=== PATIENT | male | born 1945 | race Caucasian/White ===

== ENCOUNTER 2017-01-19 10:36 | Emergency (ER) | payer OTHER ==
[~2017-01-19] VITALS: Ht 167.6 cm; Wt 94.0 kg
[~2017-01-19 10:36] MED LIST: COLC1TAB7 PO; DIOV160T6 PO; ECOT81TA2 PO; ENOX60P SQ; GLIP5TAB8 PO; GLUCTAB PO; HYDR12.57 PO; LANS30 PO; METO100T PO; NIAC250C6 PO; SIMV80TA PO; WARF3TAB PO
[2017-01-19 10:44] VITALS: BP 167/99; PULSE 89; RESP 16; TEMP 98.3; O2SAT 97
[2017-01-19] MEDS ORDERED: SIMV40TA PO (11:04)
[2017-01-19] MEDS ORDERED: METF500T PO (11:04)
[2017-01-19] MEDS ORDERED: VALS1TAB65 PO (11:04)
[2017-01-19] MEDS ORDERED: HYDR12.56 PO (11:04)
[2017-01-19] MEDS ORDERED: GLIP10TA6 PO (11:04)
[2017-01-19] MEDS ORDERED: COLC1CAP3 PO (11:04)
[2017-01-19] MEDS ORDERED: WARF-58 PO (11:04)
[2017-01-19] MEDS ORDERED: LANS15CA PO (11:04)
[2017-01-19] MEDS ORDERED: ASPI-516 PO (11:04)
[2017-01-19] MEDS ORDERED: METO100T PO (11:04)
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
--- NOTE | 2017-01-19 12:00 | RADRPT ---
EXAM DATE/TIME: 01/19/2017 11:21 [facility] COMPARISON: No previous studies available for comparison. INDICATIONS : Right elbow pain and swelling, no known injury. MEDICAL HISTORY : None. SURGICAL HISTORY : None. ENCOUNTER: Initial ACUITY: 2 weeks PAIN SCORE: 5/10 LOCATION: Right elbow FINDINGS: Multiple view examination of the right elbow demonstrates no soft tissue swelling, joint effusion, or fracture. The osseous structures are in normal alignment. Bony mineralization is normal. CONCLUSION: Negative for fracture. Nahid Huber MD FACR on January 19, 2017 at 11:57 Board Certified Radiologist. This report was verified electronically.
[2017-01-19] MEDS ORDERED: PRED20 PO (12:29)
[2017-01-19] MEDS ORDERED: DEXAMETHASONE SOD PHOS 4 MG/ML VIAL IM ONE (12:30)
== END 2017-01-19 13:01 | disposition home or self-care (01) ==
LOC: PHEFT 10:36
DX: M79.641 Pain in right hand (principal); M10.9 Gout, unspecified; E11.9 Type 2 diabetes mellitus without complications; E78.00 Pure hypercholesterolemia, unspecified; I10 Essential (primary) hypertension; Z79.84 Long term (current) use of oral hypoglycemic drugs
CPT/HCPCS: 73080; 96372; 99284; J1100

== ENCOUNTER 2017-06-03 09:46 | Emergency (ER) | payer MEDICARE, OTHER ==
[~2017-06-03] VITALS: Ht 167.6 cm; Wt 89.6 kg
[~2017-06-03 09:46] MED LIST changes: +ASPI-516 PO; +COLC1CAP3 PO; -COLC1TAB7 PO; -DIOV160T6 PO; -ECOT81TA2 PO; -ENOX60P SQ; +GLIP10TA6 PO; -GLIP5TAB8 PO; -GLUCTAB PO; +HYDR12.56 PO; -HYDR12.57 PO; +LANS15CA PO; -LANS30 PO; +METF500T PO; -NIAC250C6 PO; +PRED20 PO; +SIMV40TA PO; -SIMV80TA PO; +VALS1TAB65 PO; +WARF-58 PO; -WARF3TAB PO
[2017-06-03 09:59] VITALS: BP 179/95; PULSE 74; RESP 18; TEMP 97.4; O2SAT 99
--- NOTE | 2017-06-03 10:34 | RADRPT ---
EXAM DATE/TIME: 06/03/2017 10:19 [facility] COMPARISON: No previous studies available for comparison. INDICATIONS : Left wrist pain after fall 3 days ago. MEDICAL HISTORY : Arthritis. Gout. SURGICAL HISTORY : None. ENCOUNTER: Initial ACUITY: 3 days PAIN SCORE: 3/10 LOCATION: Left wrist FINDINGS: Three view examination of the left wrist demonstrates no soft tissue swelling, dislocation, or fractu re. Degenerative changes are seen at the first carpometacarpal joint. The carpal bones are in normal alignment. The joint spaces are maintained. Bony mineralization is normal. CONCLUSION: Degenerative changes first carpometacarpal joint. No fracture Nahid Huber MD FACR on June 03, 2017 at 10:30 Board Certified Radiologist. This report was verified electronically.
--- NOTE | 2017-06-03 11:00 | PD ---
HPI Chief Complaint: Injury Time Seen by Provider: 10:16 Travel History International Travel<30 days: No Contact w/Intl Traveler<30days: No Traveled to known affect area: No History of Present Illness HPI 71-year-old male here with left wrist pain 3 days. Patient reports he tripped falling forward onto outstretched hand injuring the wrist 3 days ago. He denies head injury or loss of consciousness. Patient is anticoagulated on warfarin. He denies headache, visual changes, neck pain, chest pain, abdominal pain, paresthesia or weakness of the extremities. He has pain localized to the left wrist exclusively which is throbbing in nature, worse with range of motion and relieved with rest. Symptom severity is mild to moderate. He has not attempted any OTC medications. PFSH Past Medical History Hx Anticoagulant Therapy: Yes (WARFARIN) Arthritis: Yes Asthma: No Atrial Fibrillation: Yes Blood Disorders: No Heart Rhythm Problems: Yes Cancer: Yes (BASAL CELL SKIN CA) Cardiac Catheterization: Yes Cardiovascular Problems: Yes (A FIB) High Cholesterol: Yes Chest Pain: Yes Congestive Heart Failure: No COPD: No Diabetes: Yes (TYPE 2) Patient Takes Glucophage: Yes Endocrine: Yes Genitourinary: No Hepatitis: No Hiatal Hernia: No Hypertension: Yes Immune Disorder: No Musculoskeletal: Yes (ARTHRITIS) Neurologic: Yes (NUMBNESS RIGHT HAND) Psychiatric: No Reproductive: No Respiratory: Yes (SLEEP APNEA, USES CPAP) Myocardial Infarction: Yes (2001) Sleep Apnea: Yes Thyroid Disease: No Influenza Vaccination: Yes Past Surgical History AICD: No Arteriovenous Shunt: No Body Medical Devices: CARDIAC STENTS, PINS/RODS REMOVED FROM R FOOT, WIRE R KNEE Cardiac Surgery: Yes (CARDIAC STENTS 2001, 2008) Coronary Stent: Yes (x 3 ) Insulin Pump: No Joint Replacement: No Pacemaker: No Other Surgery: Yes Social History Alcohol Use: Yes (occassionally ) Tobacco Use: No Substance Use: No Allergies-Medications (Allergen,Severity, Reaction): Coded Allergies: penicillin G (Unverified Allergy, Severe, 06/03/17) Reported Meds & Prescriptions Reported Meds & Active Scripts Active Reported Glipizide 10 Mg Tab 10 Mg PO DAILY Take 30 minutes before a meal Metformin (Metformin HCl) 500 Mg Tab 500 Mg PO TIDPC Lansoprazole 15 Mg Capdr 15 Mg PO DAILY Colchicine 0.6 Mg Cap 0.6 Mg PO DAILY Aspirin 81 Mg Chew 81 Mg PO DAILY Warfarin 3 Mg Tab 3 Mg PO DAILY Hydrochlorothiazide 12.5 Mg Tab 12.5 Mg PO DAILY Simvastatin 40 Mg Tab 40 Mg PO HS Valsartan 160 Mg Tab 160 Mg PO BID Metoprolol Tartrate 100 Mg Tab 100 Mg PO BID Review of Systems Except as stated in HPI: all other systems reviewed are Neg General / Constitutional: No: Fever Eyes: No: Visual changes HENT: No: Headaches Cardiovascular: No: Chest Pain or Discomfort Respiratory: No: Shortness of Breath Gastrointestinal: No: Abdominal Pain Genitourinary: No: Dysuria Physical Exam Narrative GENERAL: Alert and well-appearing 8-year-old male SKIN: Warm and dry. Superficial abrasion noted to left knee and left elbow HEAD: Atraumatic. Normocephalic. EYES: Pupils equal and round. EOMs intact. No injection or drainage. ENT: No nasal bleeding or discharge. Mucous membranes pink and moist. No facial bone tenderness NECK: Trachea midline. No cervical midline tenderness. CARDIOVASCULAR: Regular rate and rhythm. No chest wall tenderness. RESPIRATORY: No accessory muscle use. Clear to auscultation. Breath sounds equal bilaterally. GASTROINTESTINAL: Abdomen soft, non-tender, nondistended. MUSCULOSKELETAL: Extremities without clubbing, cyanosis, or edema. No obvious deformities. Left upper extremely: +ttp over distal radius and scaphoid region. Flexion and extension of the wrist cause pain. Can freely move the fingers. 2+ radial pulse. Normal sensation in the wrist and hand. Brisk cap refill. NEUROLOGICAL: Awake and alert. No obvious cranial nerve deficits. Motor grossly within normal limits. Five out of 5 muscle strength in the arms and legs. Normal speech. PSYCHIATRIC: Appropriate mood and affect; insight and judgment normal. Data Data Last Documented VS Vital Signs Date Time Temp Pulse Resp B/P (MAP) Pulse Ox O2 Delivery O2 Flow Rate FiO2 06/03/17 09:59 97.4 74 18 179/95 (123) 99 Orders Orders Wrist, Complete ([id number]) (06/03/17 ) Splint Or Brace Apply/Monitor (06/03/17 10:46) [facility] Medical Decision Making Medical Screen Exam Complete: Yes Emergency Medical Condition: Yes Differential Diagnosis Wrist fracture, scaphoid fracture, wrist sprain, ICH Narrative Course 71-year-old male here with left wrist pain after he fell from a standing position onto an outstretched hand 3 days ago. The extremity is neurovascularly intact. patient is anticoagulated on Coumadin. He is adamant he did not hit his head. No LOC and remembers the entire event. Denies headache, visual changes, nausea or vomiting or any symptoms of ICH. Discussed CT scan to rule out ICH given he is anticoagulated and had a fall. Patient refused. Risk of missed ICH could lead to permanent disability and discussed. He verbalizes understanding and still refuses scan. X-ray left wrist is negative for fracture or dislocation. Patient has tenderness over the scaphoid region and for this reason he was put in a thumb spica splint to rule out occult fracture of the scaphoid. He is to follow-up with his primary doctor for recheck next week. Diagnosis Primary Impression: Wrist pain Qualified Codes: M25.532 - Pain in left wrist Referrals: Orthopedist Primary Care Physician Additional Instructions: Leave the splint in place until follow-up with her primary doctor next week. Your x-ray was negative for fracture at today's visit. You have pain over the scaphoid bone and may need repeat x-ray if you continue to have pain next week. Disposition: 01 DISCHARGE HOME Condition: Stable VincenzosapphireDeysi COKER Jun 03, 2017 11:00
== END 2017-06-03 11:10 | disposition home or self-care (01) ==
LOC: PHEFT 09:46
DX: M25.532 Pain in left wrist (principal); W01.0XXA Fall on same level from slipping, tripping and stumbling without subsequent striking against object, initial encounter; I10 Essential (primary) hypertension; I48.91 Unspecified atrial fibrillation; I25.2 Old myocardial infarction; E78.00 Pure hypercholesterolemia, unspecified; E11.9 Type 2 diabetes mellitus without complications; M19.90 Unspecified osteoarthritis, unspecified site; Z85.828 Personal history of other malignant neoplasm of skin; Z95.5 Presence of coronary angioplasty implant and graft; Z88.0 Allergy status to penicillin; Z79.01 Long term (current) use of anticoagulants; Z79.84 Long term (current) use of oral hypoglycemic drugs; Z79.899 Other long term (current) drug therapy
CPT/HCPCS: 73110; 99283; L3808; 29130

== ENCOUNTER 2017-11-29 10:42 | Observation (INO) ==
--- NOTE | 2017-11-29 12:30 | ED ---
HPI General Chief complaint: Recheck/Abnormal Lab/Rx Stated complaint: Right Leg Complaint Time Seen by Provider: 11/29/17 12:01 History of Present Illness HPI narrative: 72-year-old male with a history of hypertension, CAD with aunts x3, hyperlipidemia, diabetes, atrial fibrillation presents to the emergency department for evaluation of anemia and leg hematoma. Patient states that one week ago he was driving down from [place] to his home here in [place]. States that when they arrived in [place] he had pain in his right posterior thigh. States that he had significant swelling in this area and tenderness to palpation. States that he went to a hospital in [place] and they did ultrasound and CT imaging and determined that he had a hematoma in his right thigh due to taking warfarin. States that while he was in the hospital he was anemic however never required transfusion. States that he was in the hospital for 5 days. He was discharged from that hospital 4 days ago and had blood work done yesterday as an outpatient for his PCP. States that he went to his PCPs office today and they noted that his hemoglobin was 6.7 yesterday and therefore he was sent here to have possible blood transfusion. He states that he still has pain in the right thigh and right lower leg. Describes it as a soreness. States that the bruising has moved down from his upper thigh now to his ankle. States that the swelling has improved since last week. He has not been on warfarin since he was admitted to the hospital last week, he is currently on no anticoagulation. He does state he feels slightly fatigued. Denies any chest pain, shortness of breath, syncope, presyncope, numbness or tingling. No other complaints. PCP Dr. Garcia. Related Data Home Medications Medication Instructions Recorded Confirmed glipizide 10 mg PO DAILY 11/29/17 11/29/17 hydrochlorothiazide 12.5 mg PO DAILY 11/29/17 11/29/17 lansoprazole 15 mg PO DAILY 11/29/17 11/29/17 metformin 500 mg PO BID 11/29/17 11/29/17 metoprolol tartrate 100 mg PO BID 11/29/17 11/29/17 valsartan 160 mg PO BID 11/29/17 11/29/17 warfarin 3 mg PO DAILY 11/29/17 11/29/17 Allergies Allergy/AdvReac Type Severity Reaction Status Date / Time penicillin G Allergy Severe Hives Verified 11/29/17 12:00 Review of Systems ROS: all other systems reviewed are negative [facility] Medical History Medical History A-fib (Acute) Diabetes (Acute) Gout (Acute) HBP (high blood pressure) (Acute) High cholesterol (Acute) Surgical History Surgical History Hx of heart artery stent (Acute) Hx of knee surgery (Acute) Social History Social History Substance History: No History of Abuse Second Hand Smoke Exposure: No Smoking Status: Never smoker How Often Do You Have a Drink Containing Alcohol: Never Recent Travel in [facility] within the Last 8 Weeks: No Recent Out of Country Travel within the Last 8 Weeks: No Immunization History Tetanus Immunization: >5 Years Exam Narrative Exam Narrative: GENERAL: Well-nourished and well-developed pleasant patient in no acute distress who is nontoxic appearing. SKIN: Warm and dry. HEAD: Normocephalic and atraumatic. EYES: No injection, drainage, or hyphema noted. PERRLA. EOMI. ENT: No nasal drainage noted. Oropharynx is clear. NECK: Supple and the trachea is midline. CARDIOVASCULAR: Regular rate and rhythm. RESPIRATORY: Breath sounds are equal bilaterally with no accessory muscle use, wheezing, rhonchi, or crackles. GASTROINTESTINAL: Abdomen is soft, non-tender, and nondistended. MUSCULOSKELETAL: Large area of ecchymosis noted to right inner thigh extending from groin to knee with tenderness to palpation. Ecchymosis noted to medial right ankle with tenderness to palpation. Mild swelling of leg from thigh down to ankle. No calf tenderness. No obvious deformities present throughout the upper and lower extremities. Patient has full range of motion without any signs of neurovascular compromise. Distal pulses are 2+ throughout. NEUROLOGICAL: Awake, alert, and oriented. Normal speech and gait. Cranial nerves are grossly intact. Course Initial Documented Vital Signs Temperature 98.6 F 11/29/17 10:48 Pulse Rate 93 H 11/29/17 10:48 Respiratory Rate 16 11/29/17 10:48 Blood Pressure 137/62 11/29/17 10:48 Pulse Oximetry 100 11/29/17 10:48 Last Documented Vital Signs Temperature 98.1 F 11/29/17 17:40 Pulse Rate 91 H 11/29/17 17:40 Respiratory Rate 16 11/29/17 17:40 Blood Pressure 136/69 11/29/17 17:40 Pulse Oximetry 98 11/29/17 17:25 Medical Decision Making URIEL Attestation URIEL supervised visit: Yes Attestation: I, Dr. Stoddard, have reviewed the advance practice practitioner' s documentation and am in agreement, met with the patient face to face, made the diagnosis, and the medical decision making was done by me. *My assessment and Findings: Ecchymosis on the right lower extremity with dependent edema and ecchymosis on the distal aspect of the leg MDM Narrative Medical decision making narrative: 72-year-old male presents to the ED for evaluation of anemia and right leg hematoma. Patient is afebrile, vital signs are stable. IV access is obtained, labs been drawn and sent. Patient is placed on cardiac telemetry and pulse oximetry monitoring. Patient brought labs with him that he had done yesterday as an outpatient which shows his hemoglobin was 6.7, hematocrit 23.1, INR 1.0. He also brought records from recent hospitalization in [place]. His last CT of the femur without IV contrast was done 11/23/17 showing large intramuscular hematoma within the vastus intermedius muscle with no significant interval change seen in the size of the hematoma when compared to the original image done 11/21/17. CBC shows slightly elevated white blood cell count of 14.3 and anemia with hemoglobin 6.9, hematocrit 22.3. Coags are unremarkable. CMP shows chronic kidney disease with elevated Cr 1.71, GFR 40, BUN 38. Stable compared to prior labs. Ultrasound of right lower extremities negative for DVT. Chest x-ray is negative. CT of the right femur shows subtle intramuscular hematoma measuring a proximally 4.5 x 2.2 cm in greatest transverse and AP diameter. This is smaller than previous CT which showed it was 4 x [address] of the right tib-fib shows soft tissue swelling and edema with no hematoma. 2 units of blood ordered for the patient to have transfused. Patient will be admitted for symptomatic anemia and right thigh hematoma. Patient requesting to be admitted to [facility] which I think is appropriate. I discussed with Dr. Alex STOREY at who accepts patient for admission to be transferred to . Medical Screen Exam Complete: Yes Emergency Medical Condition: Yes Differential Diagnosis Differential Diagnosis: Hematoma versus bleeding versus supratherapeutic INR versus anemia Lab Data Result diagrams: 11/29/17 12:20 11/29/17 12:20 Lab Results 11/29/17 11/29/17 11/29/17 Range/Units 12:20 12:20 12:20 WBC (4.0-11.0) th/mm3 RBC (4.50-5.90) mil/mm3 Hgb (13.0-17.0) gm/dL Hct (39.0-51.0) % MCV (80.0-100.0) fL MCH (27.0-34.0) pg MCHC (32.0-36.0) % RDW (11.6-17.2) % Plt Count (150-450) th/mm3 MPV (7.0-11.0) fL Prelim Diff (Auto) Neut % (Auto) (16.0-70.0) % Lymph % (Auto) (9.0-44.0) % [place] % (Auto) (0.0-8.0) % Eos % (Auto) (0.0-4.0) % Baso % (Auto) (0.0-2.0) % Neut # (Auto) (1.8-7.7) th/mm3 Lymph # (Auto) (1.0-4.8) th/mm3 [place] # (Auto) (0.0-0.9) th/mm3 Eos # (Auto) (0.0-0.4) th/mm3 Baso # (Auto) (0.0-0.2) th/mm3 WBC Differential Diff Scan Differential Comment Polychromasia (0.0-1.9) % Ovalocytes (None) PT 11.0 (9.8-11.6) sec INR 1.1 Ratio APTT 25.2 (24.3-30.1) sec Sodium 137 (136-145) meq/L Potassium 3.6 (3.5-5.1) meq/L Chloride 102 (98-107) meq/L Carbon Dioxide 23.9 (21.0-32.0) meq/L Anion Gap 11 (5-15) meq/L BUN 38 H (7-18) mg/dL Creatinine 1.71 H (0.60-1.30) mg/dL Estimated GFR 40 L (>89) mL/min POC Glucose (68-110) mg/dl Random Glucose 175 H (74-106) mg/dL Calcium 8.9 (8.5-10.1) mg/dL Total Bilirubin 1.7 H (0.2-1.0) mg/dL AST 18 (15-37) U/L ALT 19 (12-78) U/L Alkaline Phosphatase 108 (45-117) U/L Total Protein 7.1 (6.4-8.2) g/dL Albumin 3.2 L (3.4-5.0) g/dL Blood Type A Negative Blood Type Recheck Required Antibody Screen Negative MTS Gel Crossmatch Bld Prod Order Comment 11/29/17 11/29/17 11/29/17 Range/Units 12:20 15:52 17:44 WBC 14.3 H (4.0-11.0) th/mm3 RBC 3.07 L (4.50-5.90) mil/mm3 Hgb 6.9 L* (13.0-17.0) gm/dL Hct 22.3 L (39.0-51.0) % MCV 72.8 L (80.0-100.0) fL MCH 22.6 L (27.0-34.0) pg MCHC 31.0 L (32.0-36.0) % RDW 22.7 H (11.6-17.2) % Plt Count 276 (150-450) th/mm3 MPV 8.1 (7.0-11.0) fL Prelim Diff (Auto) Slide review pending Neut % (Auto) 80.9 H (16.0-70.0) % Lymph % (Auto) 8.3 L (9.0-44.0) % Moh[place] % (Auto) 8.2 H (0.0-8.0) % Eos % (Auto) 2.0 (0.0-4.0) % Baso % (Auto) 0.6 (0.0-2.0) % Neut # (Auto) 11.6 H (1.8-7.7) th/mm3 Lymph # (Auto) 1.2 (1.0-4.8) th/mm3 [place] # (Auto) 1.2 H (0.0-0.9) th/mm3 Eos # (Auto) 0.3 (0.0-0.4) th/mm3 Baso # (Auto) 0.1 (0.0-0.2) th/mm3 WBC Differential . Diff Scan Auto diff confirmed Differential Comment . Polychromasia 2.4 H (0.0-1.9) % Ovalocytes 1+ H (None) PT (9.8-11.6) sec INR Ratio APTT (24.3-30.1) sec Sodium (136-145) meq/L Potassium (3.5-5.1) meq/L Chloride (98-107) meq/L Carbon Dioxide (21.0-32.0) meq/L Anion Gap (5-15) meq/L BUN (7-18) mg/dL Creatinine (0.60-1.30) mg/dL Estimated GFR (>89) mL/min POC Glucose 128 H (68-110) mg/dl Random Glucose (74-106) mg/dL Calcium (8.5-10.1) mg/dL Total Bilirubin (0.2-1.0) mg/dL AST (15-37) U/L ALT (12-78) U/L Alkaline Phosphatase (45-117) U/L Total Protein (6.4-8.2) g/dL Albumin (3.4-5.0) g/dL Blood Type Blood Type Recheck Antibody Screen MTS Gel Crossmatch See Detail Bld Prod Order Comment Imaging Data Radiologist's impression: Chest X-Ray 11/29/17 12:17 CONCLUSION: Cardiomegaly with no evidence of pulmonary edema.. Venous Doppler Study 11/29/17 12:30 CONCLUSION: 1. Negative exam with no evidence of deep venous thrombosis. Femur CT 11/29/17 14:22 CONCLUSION: 1. Apparent subtle intramuscular hematoma. 2. Degenerative change in the knee with joint effusion. 3. No underlying bony abnormality in the femur. Lower Extremity CT 11/29/17 14:22 CONCLUSION: 1. A few soft tissue swelling and edema with no hematoma identified. 2. Degenerative changes in the knee and ankle. Discharge Plan Discharge Disposition Patient Disposition: 30 Still Patient Discharge Details Diagnosis: Symptomatic anemia, Hematoma of right thigh Physicians Team ED Provider: Noman Stoddard ED Midlevel Provider: Lolita Adame Primary Care Provider: Haley Garcia Attending Provider: Freddy Johnson Status ED Status: Admitted Observation Patient
[2017-11-29 12:52] LABS: Activated Partial Thrombo Time 25.2 sec (24.3-30.1); INR 1.1 Ratio
[2017-11-29 13:00] LABS: Albumin 3.2 g/dL (3.4-5.0); Anion Gap 11 meq/L (5-15); Aspartate Aminotransferase 18 U/L (15-37); Blood Urea Nitrogen 38 mg/dL (7-18); Calcium 8.9 mg/dL (8.5-10.1); Carbon Dioxide 23.9 meq/L (21.0-32.0); Chloride 102 meq/L (98-107); Glomerular Filtration Rate 40 mL/min (>89); Glucose,Random 175 mg/dL (74-106); Potassium 3.6 meq/L (3.5-5.1); Sodium 137 meq/L (136-145)
[2017-11-29 13:03] LABS: Alanine Aminotransferase 19 U/L (12-78); Alkaline Phosphatase 108 U/L (45-117); Total Protein 7.1 g/dL (6.4-8.2)
[2017-11-29 13:10] LABS: Baso # (Auto) 0.1 th/mm3 (0.0-0.2); Baso % (Auto) 0.6 % (0.0-2.0); Eos # (Auto) 0.3 th/mm3 (0.0-0.4); Lymph # (Auto) 1.2 th/mm3 (1.0-4.8); Lymph % (Auto) 8.3 % (9.0-44.0); Mean Corpuscular Hemoglobin 22.6 pg (27.0-34.0); Mean Corpuscular Volume 72.8 fL (80.0-100.0); Mean Platelet Volume 8.1 fL (7.0-11.0); Mono # (Auto) 1.2 th/mm3 (0.0-0.9); Mono % (Auto) 8.2 % (0.0-8.0); Neut # (Auto) 11.6 th/mm3 (1.8-7.7); Neut % (Auto) 80.9 % (16.0-70.0); Platelet Count 276 th/mm3 (150-450); Red Blood Count 3.07 mil/mm3 (4.50-5.90); Red Cell Distribution Width 22.7 % (11.6-17.2); White Blood Count 14.3 th/mm3 (4.0-11.0)
--- NOTE | 2017-11-29 13:19 | US ---
EXAM DATE: 11/29/2017 12:30 PM EDT AGE/SEX: 72 years / Male INDICATIONS: Right leg swelling. CLINICAL DATA: This is the patient's initial encounter. Patient reports that signs and symptoms have been present for 1 week and indicates a pain score of 0/10. MEDICAL/SURGICAL HISTORY: Hypercholesterolemia. Hypertension. Atrial fibrillation. Diabetes. G OUT. . Knee surgery. Heart artery stent. COMPARISON: No prior exams available for comparison. TECHNIQUE: Venous ultrasound of both lower extremities was performed from the inguinal ligament to t he proximal calf. Real-time, color Doppler and spectral tracing, compression and augmentation techni ques were used. FINDINGS: Normal compression of the deep venous system from the inguinal region to the proximal calf . No echogenic clot is seen. Normal response of the venous system to augmentation and respiration. CONCLUSION: 1. Negative exam with no evidence of deep venous thrombosis. Electronically signed by: Jose Colvin MD 11/29/2017 1:18 PM EDT
[2017-11-29 13:21] LABS: Hematocrit 22.3 % (39.0-51.0); Hemoglobin 6.9 gm/dL (13.0-17.0)
[2017-11-29 13:32] LABS: Ovalocytes 1+; Polychromasia 2.4 % (0.0-1.9)
--- NOTE | 2017-11-29 13:40 | XR ---
EXAM DATE: 11/29/2017 12:17 PM EDT AGE/SEX: 72 years / Male INDICATIONS: Shortness of breath. CLINICAL DATA: This is the patient's initial encounter. Patient reports that signs and symptoms have been present for 3 days and indicates a pain score of 0/10. MEDICAL/SURGICAL HISTORY: None. None. COMPARISON: No prior exams available for comparison. FINDINGS: A single AP view of the chest demonstrates the lungs to be symmetrically aerated without evidence of mass, infiltrate or effusion. The heart size is mildly prominent with no pulmonary edema. Osseous st ructures are intact. CONCLUSION: Cardiomegaly with no evidence of pulmonary edema.. Electronically signed by: Jose Colvin MD 11/29/2017 1:39 PM EDT
[2017-11-29] MEDS ORDERED: Sodium Chlor 0.9% Inj 250 ML IV.SIG SCH (14:00)
--- NOTE | 2017-11-29 15:33 | CT ---
EXAM DATE: 11/29/2017 2:28 PM EDT AGE/SEX: 72 years / Male INDICATIONS: Intramuscular hematoma from upper thigh through ankle with no known injury. Patient w as on coumadin. CLINICAL DATA: This is the patient's initial encounter. Patient reports that signs and symptoms have been present for 2 weeks and indicates a pain score of 5/10. MEDICAL/SURGICAL HISTORY: Cardiovascular disease. Diabetes. Coronary artery stent. RADIATION DOSE: 10.09 CTDI (mGy) ; Combined studies COMPARISON: [facility], CT FEMUR RIGHT W/O CONTRAST, 11/29/2017. . TECHNIQUE: Multiple contiguous axial images were acquired using a multirow detector CT scanner witho ut contrast. Multiplanar reconstruction was performed in the sagittal and coronal planes. Using aut omated exposure control and adjustment of the mA and/or kV according to patient size, radiation dose was kept as low as reasonably achievable to obtain optimal diagnostic quality images. DICOM format i mage data is available electronically for review and comparison. FINDINGS: The bony structures are intact with degenerative changes noted in the medial and lateral compartments . There is evidence of a small to moderate joint effusion the suprapatella bursa region. There is no destructive change identified. There is mild osteopenia. There is diffuse soft tissue swelling and ed eddie with no focal mass or hematoma. Degenerative changes are noted in the tibiotalar joint as well. CONCLUSION: 1. A few soft tissue swelling and edema with no hematoma identified. 2. Degenerative changes in the knee and ankle. Electronically signed by: Jose Colvin MD 11/29/2017 3:32 PM EDT
--- NOTE | 2017-11-29 15:40 | CT ---
EXAM DATE: 11/29/2017 2:28 PM EDT AGE/SEX: 72 years / Male INDICATIONS: Intramuscular hematoma from upper thigh through ankle with no known injury. Patient w as on coumadin. CLINICAL DATA: This is the patient's initial encounter. Patient reports that signs and symptoms have been present for 2 weeks and indicates a pain score of 5/10. MEDICAL/SURGICAL HISTORY: Cardiovascular disease. Diabetes. Coronary artery stent. RADIATION DOSE: 10.09 CTDI (mGy) ; Combined studies COMPARISON: [facility], CT TIB/FIB RIGHT W/O CONTRAST, 11/29/2017. . TECHNIQUE: Multiple contiguous axial images were acquired using a multirow detector CT scanner witho ut contrast. Multiplanar reconstruction was performed in the sagittal and coronal planes. Using aut omated exposure control and adjustment of the mA and/or kV according to patient size, radiation dose was kept as low as reasonably achievable to obtain optimal diagnostic quality images. DICOM format i mage data is available electronically for review and comparison. FINDINGS: Bones: The bony structures about the forefoot are in normal alignment. The metatarsi, phalanges, an d distal tarsal row osseous structures are intact. No fracture is seen. Joints: No significant arthropathy or bony hypertrophy is seen. Soft Tissues: There is an ill-defined apparent intramuscular hematoma along the anterior mid femur w hich measures up to approximately 4.5 x 2.2 cm in greatest transverse and AP diameter. This has mildl y increased density is mildly inhomogeneous. This is not visualized on the coronal and sagittal image s. There is soft tissue edema in the subcutaneous fat wrist posteriorly and laterally. There is evide nce of a joint effusion in the knee. There are degenerative changes in the knee. Other: No foreign bodies seen. CONCLUSION: 1. Apparent subtle intramuscular hematoma. 2. Degenerative change in the knee with joint effusion. 3. No underlying bony abnormality in the femur. Electronically signed by: Jose Colvin MD 11/29/2017 3:39 PM EDT
[2017-11-29] MEDS ORDERED: Acetaminophen 325 MG Tablet PO PRN (16:51)
[2017-11-29] MEDS ORDERED: Temazepam 15 MG Capsule PO PRN (16:51)
[2017-11-29] MEDS ORDERED: Bisacodyl 10 MG Supp RECTAL PRN (16:51)
[2017-11-29] MEDS ORDERED: Dextrose 50% in Water 50 ML Vial IV.PUSH PRN (16:53)
[2017-11-29] MEDS: Insulin NovoLOG Aspart Correctional Sugar Inj SQ SCH ×2 (17:51→21:21)
[2017-11-29] MEDS: Senna/Docusate Sodium 8.6/50 MG Tablet PO SCH (21:21)
[2017-11-30 02:33] VITALS: RESP 18
[2017-11-30 04:22] LABS: Potassium 3.7 meq/L (3.5-5.1)
[2017-11-30 04:24] LABS: Calcium 8.1 mg/dL (8.5-10.1)
[2017-11-30 06:42] LABS: Baso % (Auto) 0.4 % (0.0-2.0); Eos # (Auto) 0.3 th/mm3 (0.0-0.4); Eos % (Auto) 2.5 % (0.0-4.0); Hematocrit 27.3 % (39.0-51.0); Hemoglobin 8.6 gm/dL (13.0-17.0); Lymph # (Auto) 0.9 th/mm3 (1.0-4.8); Lymph % (Auto) 7.1 % (9.0-44.0); Mean Corpuscular HGB Conc 31.5 % (32.0-36.0); Mean Corpuscular Hemoglobin 24.1 pg (27.0-34.0); Mean Corpuscular Volume 76.6 fL (80.0-100.0); Mean Platelet Volume 8.5 fL (7.0-11.0); Mono # (Auto) 0.9 th/mm3 (0.0-0.9); Mono % (Auto) 7.3 % (0.0-8.0); Neut % (Auto) 82.7 % (16.0-70.0); Platelet Count 271 th/mm3 (150-450); Red Blood Count 3.56 mil/mm3 (4.50-5.90); White Blood Count 12.1 th/mm3 (4.0-11.0)
[2017-11-30 07:16] LABS: Ovalocytes 1+
[2017-11-30] MEDS: Insulin NovoLOG Aspart Correctional Sugar Inj SQ SCH ×2 (08:09→11:17)
[2017-11-30] MEDS: Senna/Docusate Sodium 8.6/50 MG Tablet PO SCH (08:10)
[2017-11-30 08:23] VITALS: O2SAT 96
--- NOTE | 2017-11-30 11:12 | P.HP ---
History of Present Illness Primary Care Physician: Haley Garcia MD Chief Complaint: Primary doctor told him to come here to get a transfusion History of Present Illness: 72-year-old male with known history of hypertension, hyper lipidemia, coronary artery disease, diabetes, chronic atrial fibrillation, gout who presented to the hospital the request of his prior medical doctor for transfusion. Patient has a recent history of right thigh ecchymosis, hematoma. Patient states that he was up in [place] and was traveling down back to [place] where he lives when he started developing right lower extremity edema, pain, difficulty ambulating. He called his primary call doctor who told him to go to the nearest hospital to rule out any blood clot. The patient did go to hospital in [place] in which they did ultrasounds and ruled out any DVT. However patient did have CT done of the thigh which did indicate a significant hematoma in the muscle measuring 5 x 7 x 15 cm. Patient was in the hospital at that time and he was discontinued off of Coumadin. Patient's hemoglobin was stable from 7.1-7.5 during his stay in the hospital. Patient was discharged and he came home to his primary medical doctor and had laboratory studies performed in which his hemoglobin is below 7 so his primary doctor sent him to the hospital for transfusion. Patient states that he has had significant symptoms to include shortness of breath, difficulty breathing, weakness, right lower extremity pain. Patient has had significant difficulty ambulating with the right lower extremity edema. Patient does go to Dr. Loyola for his management of his heart disease. - Diagnosis (1) Symptomatic anemia (2) Hematoma of right thigh Review of Systems All other systems reviewed negative except as stated in HPI Respiratory: Reports shortness of breath with activity Musculoskeletal: Reports joint pain, Reports joint swelling, Reports muscle cramps PMFSH - History History Provided By: Patient - Medical History Medical History: Medical History (Last Reviewed 11/30/17 @ 10:34 by JOCELYN Grace) A-fib Diabetes Gout HBP (high blood pressure) High cholesterol - Surgical History Surgical History: Surgical History (Last Updated 11/30/17 @ 10:35 by JOCELYN Grace) History of toe surgery Hx of heart artery stent Hx of knee surgery - Family History Family History: Family History (Last Updated 11/30/17 @ 10:36 by JOCELYN Grace) Father No problems noted. Mother History of myocardial infarction - Tobacco History Second Hand Smoke Exposure: No Tobacco Use In Past 30 Days: No Smoking Status: Never smoker - Alcohol History How Often Do You Have a Drink Containing Alcohol: Monthly or less - Substance Use History Substance History: No History of Abuse - Travel History Recent Travel in the [place] Within the Last 8 Weeks: No Recent Travel Out of the Country Within the Last 8 Weeks: No - Immunization History Tetanus Immunization: >5 Years Medications and Allergies Active Medications: Active Medications Acetaminophen (Tylenol) 650 mg PO Q4H PRN PRN Reason: Temp > 100.4 Al Hydroxide/Mg Hydroxide (Milk Of Magnesia Liq) 30 ml PO Q12H PRN PRN Reason: Mild Constipation Bisacodyl (Dulcolax Supp) 10 mg RECTAL DAILY PRN PRN Reason: SEVERE CONSITIPATION Dextrose (D50w Vial) 50 ml IV.PUSH UNSCH PRN PRN Reason: PER HYPOGLYCEMIA PROTOCOL Glucagon (Glucagon Inj) 1 mg OTHER PRN PRN PRN Reason: for Hypoglycemia Protocol Insulin Aspart (Novolog Insulin Correctional Sugar Inj) 0 unit SQ ACHS [facility]; Protocol Last Admin: 11/30/17 08:09 Dose: 2 unit Lactulose (Lactulose Liq) 30 ml PO DAILY PRN PRN Reason: SEVERE CONSITIPATION Ondansetron HCl (Zofran Inj) 4 mg IV.PUSH Q6H PRN PRN Reason: NAUSEA OR VOMITING Senna/Docusate Sodium (Shanna-Colace) 1 tab PO BID TAMAR Last Admin: 11/30/17 08:10 Dose: 1 tab Sennosides (Senokot) 17.2 mg PO Q12H PRN PRN Reason: Moderate Constipation Sodium Chloride (Ns Flush) 2 ml IV.FLUSH PRN PRN PRN Reason: FLUSH AFTER USING IV ACCESS Last Admin: 11/29/17 12:27 Dose: 2 ml Temazepam (Restoril) 15 mg PO HS PRN PRN Reason: INSOMNIA Last Admin: 11/29/17 22:48 Dose: 15 mg Allergies Allergy/AdvReac Type Severity Reaction Status Date / Time penicillin G Allergy Severe Hives Verified 11/29/17 12:00 Home Medications Medication Instructions Recorded Confirmed Type glipizide 10 mg PO DAILY 11/29/17 11/29/17 History hydrochlorothiazide 12.5 mg PO DAILY 11/29/17 11/29/17 History lansoprazole 15 mg PO DAILY 11/29/17 11/29/17 History metformin 500 mg PO BID 11/29/17 11/29/17 History metoprolol tartrate 100 mg PO BID 11/29/17 11/29/17 History valsartan 160 mg PO BID 11/29/17 11/29/17 History warfarin 3 mg PO DAILY 11/29/17 11/29/17 History Exam Vital signs: Vital Signs 11/29/17 12:17 11/29/17 12:20 11/29/17 16:00 Temperature 98.1 F 97.9 F Pulse Rate 86 84 96 H Respiratory Rate 18 17 Blood Pressure 122/58 L 143/79 H Pulse Oximetry 99 99 98 11/29/17 16:51 11/29/17 17:25 11/29/17 17:40 Temperature 98 F 98.1 F 98.1 F Pulse Rate 94 H 63 91 H Respiratory Rate 16 18 16 Blood Pressure 143/79 H 133/67 136/69 Pulse Oximetry 99 98 11/29/17 19:55 11/29/17 20:47 11/29/17 22:33 Temperature 99.2 F 97.4 F L 98.5 F Pulse Rate 101 H 93 H 101 H Respiratory Rate 20 20 20 Blood Pressure 153/72 H 169/85 H 161/74 H Pulse Oximetry 99 100 100 11/29/17 22:50 11/30/17 00:00 11/30/17 02:31 Temperature 98.1 F 98.1 F 99.7 F H Pulse Rate 100 H 100 H 107 H Respiratory Rate 20 20 18 Blood Pressure 125/72 125/72 138/89 Pulse Oximetry 100 100 100 11/30/17 08:00 Temperature 99.5 F Pulse Rate 67 Respiratory Rate 18 Blood Pressure 134/80 Pulse Oximetry 96 Intake & Output 11/29/17 11/30/17 11/30/17 18:59 06:59 18:59 Intake Total 0 / 0 1040 / 1040 Output Total 400 / 400 Balance 0 / 0 640 / 640 Weight 90.904 kg 93.3 kg Intake: Oral 240 / 240 Intake (Blood Product) Amt 0 / 0 800 / 800 Rbc As-3 Leukoreduced Unit 400 / 400 [id number] Rbc As-3 Leukoreduced Unit 0 / 0 400 / 400 [id number] Output: Urine 400 / 400 Other: Date of Last Bowel Movement 11/29/17 11/29/17 Weight On Admission 93.3 kg Narrative: GENERAL: Well-developed, well-nourished, in no acute distress. alert and orientated HEENT: Head is normocephalic without any lesions or masses noted. Facial features are symmetric. Eyes: Pupils equal round reactive to light. Extraocular muscles are intact. Conjunctivae were clear. Oropharyngeal: Pharynx without any erythema edema. Tongue is midline without deviation. Buccal mucosa is moist without any masses or lesions NECK: Supple without any masses. Trachea midline no deviation. No JVD, no bruits are appreciated CARDIAC: Regular rhythm, regular rate. S1/S2 are heard. No murmurs gallops or rubs. LUNGS: Clear to auscultation bilaterally. No wheeze, rhonchi or rales. No use of accessory muscles on inspiration or expiration. ABDOMEN: Soft, nontender. Nondistended. Bowel sounds heard in all 4 quadrants. No organomegaly or masses. Negative rebound, negative guarding EXTREMITIES: No edema, pulses are equal bilaterally. No cyanosis or clubbing NEUROLOGY: Mood and affect appear appropriate. Cranial nerves II through XII grossly intact. Muscle strength 5/5 in upper and lower extremities bilaterally. Deep tendon reflexes are 2+ in upper and lower extremities bilaterally. RIGHT LOWER EXTREMITY: Patient does have ecchymosis noted on the right medial thigh in stages of healing. Patient does have definite worsening swelling of the right lower extremity as compared to the left. There is ecchymosis noted down by the patient's heel. Areas were marked to evaluate worsening of the ecchymosis which has not extended past the marked areas which is actually rescinded mildly Results - Labs CBC & Chem 7: 11/30/17 05:10 11/30/17 04:00 Labs: Laboratory Results - last 24 hr 11/29/17 11/29/17 11/29/17 12:20 12:20 12:20 CBC w Diff WBC RBC Hgb Hct MCV MCH MCHC RDW Plt Count MPV Prelim Diff (Auto) Neut % (Auto) Lymph % (Auto) [place] % (Auto) Eos % (Auto) Baso % (Auto) Neut # (Auto) Lymph # (Auto) [place] # (Auto) Eos # (Auto) Baso # (Auto) WBC Differential Diff Scan Differential Comment Polychromasia Ovalocytes PT 11.0 INR 1.1 APTT 25.2 Sodium 137 Potassium 3.6 Chloride 102 Carbon Dioxide 23.9 Anion Gap 11 BUN 38 H Creatinine 1.71 H Estimated GFR 40 L POC Glucose Random Glucose 175 H Calcium 8.9 Total Bilirubin 1.7 H AST 18 ALT 19 Alkaline Phosphatase 108 Total Protein 7.1 Albumin 3.2 L Blood Type A Negative Blood Type Recheck Required Antibody Screen Negative MTS Gel Crossmatch Bld Prod Order Comment 11/29/17 11/29/17 11/29/17 12:20 15:52 17:44 CBC w Diff WBC 14.3 H RBC 3.07 L Hgb 6.9 L* Hct 22.3 L MCV 72.8 L MCH 22.6 L MCHC 31.0 L RDW 22.7 H Plt Count 276 MPV 8.1 Prelim Diff (Auto) Slide review pending Neut % (Auto) 80.9 H Lymph % (Auto) 8.3 L [place] % (Auto) 8.2 H Eos % (Auto) 2.0 Baso % (Auto) 0.6 Neut # (Auto) 11.6 H Lymph # (Auto) 1.2 [place] # (Auto) 1.2 H Eos # (Auto) 0.3 Baso # (Auto) 0.1 WBC Differential . Diff Scan Auto diff confirmed Differential Comment . Polychromasia 2.4 H Ovalocytes 1+ H PT INR APTT Sodium Potassium Chloride Carbon Dioxide Anion Gap BUN Creatinine Estimated GFR POC Glucose 128 H Random Glucose Calcium Total Bilirubin AST ALT Alkaline Phosphatase Total Protein Albumin Blood Type Blood Type Recheck Antibody Screen MTS Gel Crossmatch See Detail Bld Prod Order Comment 11/29/17 11/30/17 11/30/17 21:05 04:00 05:10 CBC w Diff Slide review pending WBC 12.1 H RBC 3.56 L Hgb 8.6 L Hct 27.3 L MCV 76.6 L D MCH 24.1 L MCHC 31.5 L RDW 23.0 H Plt Count 271 MPV 8.5 Prelim Diff (Auto) Neut % (Auto) 82.7 H Lymph % (Auto) 7.1 L [place] % (Auto) 7.3 Eos % (Auto) 2.5 Baso % (Auto) 0.4 Neut # (Auto) 10.0 H Lymph # (Auto) 0.9 L [place] # (Auto) 0.9 Eos # (Auto) 0.3 Baso # (Auto) 0.0 WBC Differential . Diff Scan Auto diff confirmed Differential Comment . Polychromasia Ovalocytes 1+ H PT INR APTT Sodium 140 Potassium 3.7 Chloride 106 Carbon Dioxide 21.0 Anion Gap 13 BUN 32 H Creatinine 1.40 H Estimated GFR 50 L POC Glucose 226 H Random Glucose 163 H Calcium 8.1 L D Total Bilirubin AST ALT Alkaline Phosphatase Total Protein Albumin Blood Type Blood Type Recheck Antibody Screen MTS Gel Crossmatch Bld Prod Order Comment 11/30/17 07:32 CBC w Diff WBC RBC Hgb Hct MCV MCH MCHC RDW Plt Count MPV Prelim Diff (Auto) Neut % (Auto) Lymph % (Auto) [place] % (Auto) Eos % (Auto) Baso % (Auto) Neut # (Auto) Lymph # (Auto) [place] # (Auto) Eos # (Auto) Baso # (Auto) WBC Differential Diff Scan Differential Comment Polychromasia Ovalocytes PT INR APTT Sodium Potassium Chloride Carbon Dioxide Anion Gap BUN Creatinine Estimated GFR POC Glucose 202 H Random Glucose Calcium Total Bilirubin AST ALT Alkaline Phosphatase Total Protein Albumin Blood Type Blood Type Recheck Antibody Screen MTS Gel Crossmatch Bld Prod Order Comment - Imaging Impressions Chest X-Ray 11/29/17 12:17 CONCLUSION: Cardiomegaly with no evidence of pulmonary edema.. Venous Doppler Study 11/29/17 12:30 CONCLUSION: 1. Negative exam with no evidence of deep venous thrombosis. Femur CT 11/29/17 14:22 CONCLUSION: 1. Apparent subtle intramuscular hematoma. 2. Degenerative change in the knee with joint effusion. 3. No underlying bony abnormality in the femur. Lower Extremity CT 11/29/17 14:22 CONCLUSION: 1. A few soft tissue swelling and edema with no hematoma identified. 2. Degenerative changes in the knee and ankle. Caprini VTE Risk Assessment Caprini VTE Risk Assessment: Moderate/High Risk (score >= 2) VTE Pharmacological Exception Reason: High risk for bleeding Caprini Risk Assessment Model: Point Value = 1 Point Value = 2 Point Value = 3 Point Value = 5 Age 41-60 Minor surgery BMI > 25 kg/m2 Swollen legs Varicose veins or History of unexplained or recurrent spontaneous Oral contraceptives or hormone replacement Sepsis (< 1 month) Serious lung disease, including pneumonia (< 1 month) Abnormal pulmonary function Acute myocardial infarction Congestive heart failure (< 1 month) History of inflammatory bowel disease Medical patient at bed rest Age 61-74 Arthroscopic surgery Major open surgery (> 45 min) Laparoscopic surgery (> 45 min) Malignancy Confined to bed (> 72 hours) Immobilizing plaster cast Central venous access Age >= 75 History of VTE Family history of VTE Factor V Leiden Prothrombin [id number] Lupus anticoagulant Anticardiolipin antibodies Elevated serum homocysteine Heparin-induced thrombocytopenia Other congenital or acquired thrombophilia Stroke (< 1 month) Elective arthroplasty Hip, pelvis, or leg fracture Acute spinal cord injury (< 1 month) Prophylaxis Regimen: Total Risk Factor Score Risk Level Prophylaxis Regimen 0-1 Low Early ambulation 2 Moderate Order ONE of the following: *Sequential Compression Device (SCD) *Heparin 5000 units SQ BID 3-4 Higher Order ONE of the following medications: *Heparin 5000 units SQ TID *Enoxaparin/Lovenox 40 mg SQ daily (WT < 150 kg, CrCl > 30 mL/min) *Enoxaparin/Lovenox 30 mg SQ daily (WT < 150 kg, CrCl > 10-29 mL/min) *Enoxaparin/Lovenox 30 mg SQ BID (WT < 150 kg, CrCl > 30 mL/min) AND/OR *Sequential Compression Device (SCD) 5 or more Highest Order ONE of the following medications: *Heparin 5000 units SQ TID (Preferred with Epidurals) *Enoxaparin/Lovenox 40 mg SQ daily (WT < 150 kg, CrCl > 30 mL/min) *Enoxaparin/Lovenox 30 mg SQ daily (WT < 150 kg, CrCl > 10-29 mL/min) *Enoxaparin/Lovenox 30 mg SQ BID (WT < 150 kg, CrCl > 30 mL/min) AND *Sequential Compression Device (SCD) Assessment and Plan - Assessment (1) Symptomatic anemia Code(s): D64.9 - Anemia, unspecified Status: Acute (2) Hematoma of right thigh Code(s): S70.11XA - Contusion of right thigh, initial encounter Status: Acute - Plan Symptomatic anemia -Likely combination of chronic iron deficiency anemia but mainly from recent intramuscular bleeding causing significant right thigh hematoma, ecchymosis -Status post transfusion of 2 units packed red blood cells -Continue to monitor hemoglobin hematocrit -Recommend oral iron supplementation upon discharge Right lower extremity swelling with hematoma/ecchymosis -Unknown traumatic injury at this time -Ultrasound does not indicate any acute DVT -Upon comparing CT scans, patient has significant improvement with the size of the hematoma, due to the significant improvement is highly unlikely that there is any active bleeding at this time -Counseled patient that it is going to take time for the edema and pain to improve Hypertension, hyperlipidemia, coronary disease, chronic atrial fibrillation -Continue to hold anticoagulation, this was discontinued in [place]. Patient should follow-up with his chief creative officer in order to resume anticoagulation -Home medications were continued Diabetes -Accu-Cheks with sliding scale insulin DVT prevention -Sequential compression devices Discussed Condition With: Had rather extensive conversation and answered all questions of the patient, , son. Discharge Planning: Discharge home in stable condition Activity: Ad rolando. Diet: Healthy heart diet Medication per medication reconciliation Follow-up with primary medical doctor in 1 week, follow-up with chief creative officer Dr. Loyola in 1 week (2) Hematoma of right thigh Qualifiers: Encounter type: subsequent encounter Qualified Code(s): S70.11XD - Contusion of right thigh, subsequent encounter
[2017-11-30 11:18] LABS: Baso % (Auto) 0.2 % (0.0-2.0); Eos # (Auto) 0.3 th/mm3 (0.0-0.4); Eos % (Auto) 2.5 % (0.0-4.0); Hematocrit 25.7 % (39.0-51.0); Hemoglobin 8.6 gm/dL (13.0-17.0); Lymph # (Auto) 0.9 th/mm3 (1.0-4.8); Lymph % (Auto) 7.8 % (9.0-44.0); Mean Corpuscular HGB Conc 33.5 % (32.0-36.0); Mean Corpuscular Volume 74.9 fL (80.0-100.0); Mono # (Auto) 0.9 th/mm3 (0.0-0.9); Mono % (Auto) 7.7 % (0.0-8.0); Neut # (Auto) 9.9 th/mm3 (1.8-7.7); Neut % (Auto) 81.8 % (16.0-70.0); Platelet Count 274 th/mm3 (150-450); Red Blood Count 3.43 mil/mm3 (4.50-5.90); Red Cell Distribution Width 24.4 % (11.6-17.2)
[2017-11-30 11:48] LABS: Ovalocytes 1+
[2017-11-30 12:01] VITALS: BP 161/77; PULSE 113; TEMP 96.2
--- NOTE | 2017-11-30 18:44 | ECG ---
Date Performed: 11/29/2017 Time Performed: 12:42:59 PTAGE: 72 years EKG: ATRIAL FIBRILLATION INFERIOR MYOCARDIAL INFARCTION ABNORMAL ECG PREVIOUS TRACING : 10/27/2006 06.08 DOCTOR: Jerson Portillo Interpretating Date/Time 11/30/2017 18:43:52
== END 2017-11-30 12:48 | disposition home or self-care (01) ==
LOC: NEPC 10:42 → NEDH 10:42 → PH3 20:33
PROVIDERS: ADMIT Hospitalist; ATTEND Hospitalist